=== PATIENT | female | born 1995 | race Caucasian/White ===

== ENCOUNTER → 2022-06-14 | Outpatient (CLI) | payer MEDICARE ==
[2022-06-14 15:40] LABS: HEMATOCRIT 39.9 % (36.0-47.0); HEMOGLOBIN 13.5 g/dl (12.0-15.5); MEAN CORPUSCULAR HEMOGLOBIN 29.3 pg (27.0-33.0); MEAN CORPUSCULAR HGB CONC 33.8 g/dl (32.0-36.5); MEAN CORPUSCULAR VOLUME 86.6 fl (80.0-96.0); PLATELET COUNT, AUTOMATED 329 10^3/uL (150-450); RED BLOOD COUNT 4.61 10^6/uL (4.00-5.40); WHITE BLOOD COUNT 11.7 10^3/uL (4.0-10.0)
[2022-06-14 17:00] LABS: HEPATITIS C VIRUS ABY INDEX < 0.0 INDEX (<0.8); HIV 1&2 SCREEN CENTAUR NEGATIVE (NEGATIVE)
[2022-06-14 17:12] LABS: GC DNA AMPLIFICATION NEGATIVE (NEGATIVE)
== END ==
LOC: M PLALAB 12:26
PROVIDERS: ATTEND Obstetrics & Gynecology
DX: Z36.9 Encounter for antenatal screening, unspecified (principal)

== ENCOUNTER → 2022-07-19 | Outpatient (CLI) | payer MEDICARE | LOC: M WHC 16:14 | PROVIDERS: ATTEND Advanced Practice Midwife | DX: Z53.9 Procedure and treatment not carried out, unspecified reason (principal) ==

== ENCOUNTER → 2022-07-25 | Outpatient (CLI) | payer MEDICARE | LOC: M PLALAB 15:18 | PROVIDERS: ATTEND Advanced Practice Midwife | DX: Z34.82 Encounter for supervision of other normal pregnancy, second trimester (principal) ==

== ENCOUNTER → 2022-08-02 | Outpatient (CLI) | payer MEDICARE | LOC: M WHC 13:52 | PROVIDERS: ATTEND Advanced Practice Midwife | DX: Z34.82 Encounter for supervision of other normal pregnancy, second trimester (principal) ==

== ENCOUNTER → 2022-10-31 | Outpatient (CLI) | payer BC | LOC: M WHC 07:04 | PROVIDERS: ATTEND Advanced Practice Midwife | DX: Z34.82 Encounter for supervision of other normal pregnancy, second trimester (principal); Z3A.32 32 weeks gestation of pregnancy ==

== ENCOUNTER → 2022-11-20 | Outpatient (CLI) | payer BC ==
[2022-11-20 14:02] LABS: HEMATOCRIT 34.5 % (36.0-47.0); HEMOGLOBIN 11.3 g/dl (12.0-15.5); MEAN CORPUSCULAR HEMOGLOBIN 28.3 pg (27.0-33.0); MEAN CORPUSCULAR HGB CONC 32.8 g/dl (32.0-36.5); MEAN CORPUSCULAR VOLUME 86.3 fl (80.0-96.0); PLATELET COUNT, AUTOMATED 245 10^3/uL (150-450)
[2022-11-20 15:46] LABS: GC DNA AMPLIFICATION NEGATIVE (NEGATIVE)
== END ==
LOC: M PLALAB 09:10
PROVIDERS: ATTEND Obstetrics & Gynecology
DX: Z34.82 Encounter for supervision of other normal pregnancy, second trimester (principal)

== ENCOUNTER → 2022-11-30 | Outpatient (REF) | payer BC | LOC: M SFHCWAGY 10:03 | PROVIDERS: ATTEND Advanced Practice Midwife | DX: Z34.83 Encounter for supervision of other normal pregnancy, third trimester (principal) ==

== ENCOUNTER 2022-12-21 10:10 | Outpatient (CLI) | payer BC ==
[~2022-12-21] VITALS: Ht 167.6 cm; Wt 105.3 kg
[2022-12-21 10:34] VITALS: BP 127/79
[2022-12-21 10:45] VITALS: BP 131/85
[2022-12-21 11:00] LABS: HEMATOCRIT 34.7 % (36.0-47.0); HEMOGLOBIN 11.4 g/dl (12.0-15.5); MEAN CORPUSCULAR HEMOGLOBIN 27.7 pg (27.0-33.0); MEAN CORPUSCULAR HGB CONC 32.9 g/dl (32.0-36.5); MEAN CORPUSCULAR VOLUME 84.4 fl (80.0-96.0); PLATELET COUNT, AUTOMATED 237 10^3/uL (150-450); RED BLOOD COUNT 4.11 10^6/uL (4.00-5.40); WHITE BLOOD COUNT 10.5 10^3/uL (4.0-10.0)
[2022-12-21] MEDS ORDERED: FAMO20TA PO (11:20)
[2022-12-21 11:22] LABS: URIC ACID 4.8 MG/DL (3.1-7.8)
[2022-12-21 11:24] LABS: LDH LACTATE DEHYDROGENASE 137 U/L (120-246)
[2022-12-21 11:25] LABS: ALT/SGPT 13 U/L (7.0-40); AST/SGOT 10 U/L (<34); BILIRUBIN,TOTAL 0.2 MG/DL (0.3-1.2); CREATININE FOR GFR 0.54 MG/DL (0.55-1.30); GLOMERULAR FILTRATION RATE > 60.0 (>60)
[2022-12-21 11:48] VITALS: BP 133/77
== END 2022-12-21 11:45 | disposition home or self-care (01) ==
LOC: M LDO 10:10
PROVIDERS: ATTEND Obstetrics & Gynecology
DX: O13.3 Gestational [pregnancy-induced] hypertension without significant proteinuria, third trimester (principal); Z3A.39 39 weeks gestation of pregnancy
CPT/HCPCS: 36415; 59025; 82247; 82565; 82570; 83615; 84156; 84450; 84460; 84550; 85027; G0463

== ENCOUNTER 2022-12-24 19:21 | Inpatient (IN) | payer BC ==
[~2022-12-24] VITALS: Ht 167.6 cm; Wt 105.2 kg
[~2022-12-24 19:21] MED LIST: FAMO20TA PO
[2022-12-24 19:54] VITALS: BP 131/78
[2022-12-24 20:08] VITALS: BP 131/77
[2022-12-24 20:32] LABS: HEMATOCRIT 35.3 % (36.0-47.0); HEMOGLOBIN 11.7 g/dl (12.0-15.5); MEAN CORPUSCULAR HEMOGLOBIN 27.8 pg (27.0-33.0); MEAN CORPUSCULAR HGB CONC 33.1 g/dl (32.0-36.5); MEAN CORPUSCULAR VOLUME 83.8 fl (80.0-96.0); PLATELET COUNT, AUTOMATED 276 10^3/uL (150-450); RED BLOOD COUNT 4.21 10^6/uL (4.00-5.40)
[2022-12-24] MEDS ORDERED: CARBOPROST TROMETHAMINE 250 MCG/ML AMP IM PRN (20:50)
[2022-12-24] MEDS ORDERED: TRANEXAMIC ACID INJection 1,000 MG in NS 100 ML IV PRN (20:50)
[2022-12-24] MEDS ORDERED: METHYLERGONOVINE MALEATE 0.2MG/ML 1ML VIAL IM PRN (20:50)
[2022-12-24] MEDS ORDERED: LACTATED RINGER'S 1000 ML IV STA (20:50)
[2022-12-24] MEDS ORDERED: LIDOCAINE 1% MDV 20ML VIAL INFIL PRN (20:50)
[2022-12-24] MEDS ORDERED: miSOPROStol 50MCG 1/2 TABLET SL SCH (21:00)
[2022-12-24] MEDS: LR 1,000 ML IV SCH (21:11)
[2022-12-25] VITALS (49 sets, daily range): BP systolic 99–174; BP diastolic 55–96
[2022-12-25] MEDS ORDERED: PROMETHAZINE 25MG/ML 1ML VIAL IV ONE (01:45)
[2022-12-25] MEDS ORDERED: CALCIUM CARBONATE 500 MG CHEW U/D PO PRN (01:45)
[2022-12-25] MEDS ORDERED: MORPHINE 10 MG/ML 1ML VIAL IV ONE (01:45)
[2022-12-25] MEDS ORDERED: LR 500 ML IV PRN (05:35)
[2022-12-25] MEDS ORDERED: EPIDURAL/PCA KEYS XX PRN (05:35)
[2022-12-25] MEDS ORDERED: diphenhydrAMINE 50MG/ML VIAL IV PRN (05:35)
[2022-12-25] MEDS ORDERED: NALOXONE INJ 0.4MG/1ML VIAL IV PRN (05:35)
[2022-12-25] MEDS ORDERED: FENTANYL/ROPIVACAINE/NACL BAG 100 ML EPIDURAL SCH (05:35)
[2022-12-25] MEDS: ONDANSETRON 4MG 2ML VIAL IV PRN ×2 (07:15→14:47)
[2022-12-25] MEDS: ePHEDrine SULFATE 25 MG/5 ML(5MG/ML) SYRINGE IVP PRN ×3 (07:39→07:47)
[2022-12-25] MEDS: LR 1,000 ML IV SCH (07:45)
[2022-12-25] MEDS ORDERED: OXYTOCIN DRIP 30 UNITS in IV 1 EA IV SCH (08:10)
[2022-12-25] MEDS ORDERED: PRENTAB9 PO (08:48)
[2022-12-25] MEDS ORDERED: TUMS500C PO (08:48)
[2022-12-25] MEDS ORDERED: HOME MED LIST COMPLETE! XX SCH (08:50)
[2022-12-25 13:18] LABS: CORD GAS ABE V -10.1; CORD GAS HCO3 V 18.9 MEQ/L; CORD GAS O2 SAT V 29.5 %; CORD GAS PCO2 V 53.2 mmHg; CORD GAS PH V 7.169 UNITS; CORD GAS PO2 V 18.5 mmHg; CORD GAS SBC V 15.1 MEQ/L; CORD GAS TCO2 V 20.6 MEQ/L
[2022-12-25 13:21] LABS: CORD GAS ABE A -14.1; CORD GAS O2 SAT A 22.9 %; CORD GAS PCO2 A 69.6 mmHg; CORD GAS PH A 7.031 UNITS; CORD GAS PO2 A 18.2 mmHg; CORD GAS SBC A 12.5 MEQ/L; CORD GAS TCO2 A 20.2 MEQ/L
[2022-12-25] MEDS ORDERED: DOCUSATE SODIUM 100MG CAPSULE PO PRN (13:45)
[2022-12-25] MEDS ORDERED: ANUSOL HC CREAM 30GM TOP PRN (13:45)
[2022-12-25] MEDS ORDERED: METHYLERGONOVINE MALEATE 0.2 MG TAB PO PRN (13:45)
[2022-12-25] MEDS ORDERED: RHOGAM 300MCG (1500IU) INJ IM SCH (13:45)
[2022-12-25] MEDS ORDERED: DIBUCAINE 1% OINTMENT 30GM TOP PRN (13:45)
[2022-12-25] MEDS ORDERED: ACETAMINOPHEN 500 MG TAB PO PRN (13:45)
[2022-12-25] MEDS ORDERED: ACETAMINOPHEN TAB 650MG DOSE (2X325MG) PO PRN (13:45)
[2022-12-25] MEDS ORDERED: MOM 30ML SUSPENSION UDC PO PRN (13:45)
[2022-12-25] MEDS ORDERED: IBUPROFEN 600MG TAB PO PRN (13:45)
[2022-12-25] MEDS ORDERED: LABETALOL 100MG/20ML VIAL IV STA ×2 (15:55→16:19)
[2022-12-25] MEDS: IBUPROFEN 800 MG TAB PO PRN (16:06)
[2022-12-25 17:16] LABS: HEMATOCRIT 37.3 % (36.0-47.0); HEMOGLOBIN 12.4 g/dl (12.0-15.5); MEAN CORPUSCULAR HEMOGLOBIN 27.7 pg (27.0-33.0); MEAN CORPUSCULAR HGB CONC 33.2 g/dl (32.0-36.5); MEAN CORPUSCULAR VOLUME 83.4 fl (80.0-96.0); PLATELET COUNT, AUTOMATED 252 10^3/uL (150-450); RED BLOOD COUNT 4.47 10^6/uL (4.00-5.40); WHITE BLOOD COUNT 19.8 10^3/uL (4.0-10.0)
[2022-12-25] MEDS: LABETALOL 200 MG TAB PO SCH (17:24)
[2022-12-25 17:47] LABS: ALT/SGPT 19 U/L (7.0-40); AST/SGOT 27 U/L (<34); BILIRUBIN,TOTAL 0.4 MG/DL (0.3-1.2); CREATININE FOR GFR 0.66 MG/DL (0.55-1.30); GLOMERULAR FILTRATION RATE > 60.0 (>60); LDH LACTATE DEHYDROGENASE 207 U/L (120-246)
[2022-12-25] MEDS ORDERED: LABETALOL 200 MG TAB PO SCH (21:00)
[2022-12-26] MEDS: IBUPROFEN 800 MG TAB PO PRN ×2 (04:17→16:53)
[2022-12-26 05:26] VITALS: BP 111/58
[2022-12-26] MEDS: PRENATAL VITAMINS CHEWABLE TABLET PO SCH (08:36)
[2022-12-26] MEDS: LABETALOL 200 MG TAB PO SCH ×2 (08:45→21:18)
[2022-12-26 10:00] VITALS: BP 118/82
[2022-12-26 14:15] VITALS: BP 122/60
[2022-12-26 18:00] VITALS: BP 130/81
[2022-12-26 22:30] VITALS: BP 121/63
[2022-12-27 02:00] VITALS: BP 121/62
[2022-12-27 06:00] VITALS: BP 123/58
[2022-12-27] MEDS: PRENATAL VITAMINS CHEWABLE TABLET PO SCH (08:11)
[2022-12-27 08:12] VITALS: BP 125/74
[2022-12-27] MEDS: LABETALOL 200 MG TAB PO SCH (08:12)
[2022-12-27] MEDS ORDERED: MEASLES,MUMPS,RUBELLA VACCINE INJ (MMR-II) SC.IMMUN ONE (09:00)
[2022-12-27 10:00] VITALS: BP 131/63
[2022-12-27] MEDS ORDERED: LABE20TAB PO (12:48)
== END 2022-12-27 13:50 | disposition home or self-care (01) | DRG 560 ==
LOC: M LDI 19:21 → M OBS 12-25 18:56
PROVIDERS: ADMIT Obstetrics & Gynecology; ATTEND Advanced Practice Midwife
PROC: 3E0P7GC Introduction of Other Therapeutic Substance into Female Reproductive, Via Natural or Artificial Opening (ICD-10-PCS; 2022-12-24)
PROC: 10E0XZZ Delivery of Products of Conception, External Approach (ICD-10-PCS; principal; 2022-12-25)
PROC: 0HQ9XZZ Repair Perineum Skin, External Approach (ICD-10-PCS; 2022-12-25)
DX: O69.81X0 Labor and delivery complicated by cord around neck, without compression, not applicable or unspecified (principal); O77.0 Labor and delivery complicated by meconium in amniotic fluid; Z3A.40 40 weeks gestation of pregnancy; O70.0 First degree perineal laceration during delivery; Z37.0 Single live birth

== ENCOUNTER → 2023-05-01 | Outpatient (REF) ==
[~2023-05-01] MED LIST changes: +LABE20TAB PO; +PRENTAB9 PO; +TUMS500C PO
== END ==
LOC: M EMP 15:22
PROVIDERS: ATTEND Family Medicine
DX: Z11.52 Encounter for screening for COVID-19 (principal)

== ENCOUNTER 2024-01-16 15:56 | Emergency (ER) | payer BC ==
[~2024-01-16] VITALS: Ht 167.6 cm; Wt 99.4 kg
[2024-01-16 16:24] LABS: BASO % 0.3 % (0.0-1.0); EOS # 0.2 10^3/uL (0.0-0.5); EOS % 1.7 % (0.0-3.0); HEMATOCRIT 32.2 % (36.0-47.0); LYMPH # 2.4 10^3/uL (1.5-5.0); LYMPH % 23.5 % (24.0-44.0); MEAN CORPUSCULAR HEMOGLOBIN 28.8 pg (27.0-33.0); MEAN CORPUSCULAR HGB CONC 34.2 g/dl (32.0-36.5); MEAN CORPUSCULAR VOLUME 84.3 fl (80.0-96.0); MONO # 0.7 10^3/uL (0.0-0.8); NEUTROPHILS # 6.8 10^3/uL (1.5-8.5); NEUTROPHILS % 67.2 % (36.0-66.0); PLATELET COUNT, AUTOMATED 286 10^3/uL (150-450); RED BLOOD COUNT 3.82 10^6/uL (4.00-5.40); WHITE BLOOD COUNT 10.1 10^3/uL (4.0-10.0)
[2024-01-16 16:50] LABS: BLOOD UREA NITROGEN 12 MG/DL (9-23); CALCIUM LEVEL 8.7 MG/DL (8.5-10.1); CARBON DIOXIDE LEVEL 26 MMOL/L (20-31); CHLORIDE LEVEL 106 MMOL/L (98-107); GLOMERULAR FILTRATION RATE > 60.0 (>60); GLUCOSE, FASTING 100 MG/DL (60-100); POTASSIUM SERUM 3.8 MMOL/L (3.5-5.1); SODIUM LEVEL 140 MMOL/L (136-145)
[2024-01-16 17:07] LABS: HCG, SERUM QUANTITATIVE 14619.6 MIU/ML (<4.2)
[2024-01-16 20:03] VITALS: BP 133/78; TEMP 97.4; O2SAT 98
== END 2024-01-16 20:53 | disposition home or self-care (01) ==
LOC: M ED 15:56
DX: O02.1 Missed abortion (principal); F17.290 Nicotine dependence, other tobacco product, uncomplicated; Z79.810 Long term (current) use of selective estrogen receptor modulators (SERMs)

== ENCOUNTER → 2024-05-12 | Outpatient (REF) | LOC: M EMP 08:01 | PROVIDERS: ATTEND Family Medicine | DX: Z11.52 Encounter for screening for COVID-19 (principal) ==

== ENCOUNTER 2024-08-04 13:49 | Emergency (ER) | payer BC ==
[~2024-08-04] VITALS: Ht 167.6 cm; Wt 99.5 kg
[2024-08-04] MEDS ORDERED: KETOROLAC 30 MG/ML 1ML VIAL IM ONE (17:05)
[2024-08-04] MEDS: ACETAMINOPHEN 500 MG TAB PO ONE (17:19)
[2024-08-04] MEDS: KETOROLAC 30 MG/ML 1ML VIAL IV ONE (17:19)
[2024-08-04 17:25] LABS: HEMOGLOBIN 12.4 g/dl (12.0-15.5); MEAN CORPUSCULAR HEMOGLOBIN 27.9 pg (27.0-33.0); MEAN CORPUSCULAR HGB CONC 33.5 g/dl (32.0-36.5); MEAN CORPUSCULAR VOLUME 83.3 fl (80.0-96.0); PLATELET COUNT, AUTOMATED 256 10^3/uL (150-450); RED BLOOD COUNT 4.44 10^6/uL (4.00-5.40); WHITE BLOOD COUNT 5.9 10^3/uL (4.0-10.0)
[2024-08-04 18:00] LABS: HCG, SERUM QUALITATIVE NEGATIVE (NEGATIVE)
[2024-08-04 18:01] LABS: BLOOD UREA NITROGEN 11 MG/DL (9-23); CALCIUM LEVEL 9.1 MG/DL (8.5-10.1); CARBON DIOXIDE LEVEL 25 MMOL/L (20-31); CHLORIDE LEVEL 107 MMOL/L (98-107); CREATININE FOR GFR 0.67 MG/DL (0.55-1.30); GLOMERULAR FILTRATION RATE > 60.0 (>60); GLUCOSE, FASTING 85 MG/DL (60-100); POTASSIUM SERUM 4.3 MMOL/L (3.5-5.1); SODIUM LEVEL 139 MMOL/L (136-145)
[2024-08-04 18:12] LABS: ERYTHROCYTE SEDIMENTATION RATE 31 mm/hr (0-20)
[2024-08-04 18:36] VITALS: BP 125/78; TEMP 97.7; O2SAT 100
== END 2024-08-04 18:37 | disposition home or self-care (01) ==
LOC: M ED 13:49
DX: G43.909 Migraine, unspecified, not intractable, without status migrainosus (principal); F17.290 Nicotine dependence, other tobacco product, uncomplicated
CPT/HCPCS: 80048; 84703; 85027; 85652; 96374; 99284; J1885

== ENCOUNTER → 2024-08-04 | Outpatient (REF) | LOC: M EMP 08:42 | PROVIDERS: ATTEND Family Medicine | DX: Z11.52 Encounter for screening for COVID-19 (principal) ==

== ENCOUNTER → 2025-01-07 | Outpatient (CLI) | payer BC ==
[~2025-01-07] MED LIST changes: +ONDA-282 PO
[2025-01-07 13:19] LABS: HEMOGLOBIN 12.1 g/dl (12.0-15.5); MEAN CORPUSCULAR HGB CONC 32.7 g/dl (32.0-36.5); MEAN CORPUSCULAR VOLUME 85.6 fl (80.0-96.0); PLATELET COUNT, AUTOMATED 303 10^3/uL (150-450); RED BLOOD COUNT 4.32 10^6/uL (4.00-5.40)
[2025-01-07 13:47] LABS: FREE T4 1.12 NG/DL (0.89-1.76)
[2025-01-07 13:48] LABS: THYROID STIMULATING HORMONE 1.384 uIU/ML (0.55-4.78)
[2025-01-07 14:44] LABS: HIV 1&2 SCREEN NEGATIVE (NEGATIVE)
[2025-01-07 14:53] LABS: HEPATITIS C VIRUS ABY INDEX 0.02 INDEX (<0.8)
== END ==
LOC: M PLALAB 11:34
PROVIDERS: ATTEND Nurse Practitioner Family
DX: N96 Recurrent pregnancy loss (principal)

== ENCOUNTER 2025-01-08 12:01 | Day surgery (SDC) | payer BC ==
[~2025-01-08] VITALS: Ht 167.6 cm; Wt 100.7 kg
[2025-01-08] MEDS ORDERED: KETOROLAC 30 MG/ML 1ML VIAL As Ordered ONE (13:00)
[2025-01-08] MEDS ORDERED: propofoL 200 MG/20 ML VIAL As Ordered ONE (13:00)
[2025-01-08] MEDS ORDERED: ONDANSETRON 4MG 2ML VIAL As Ordered ONE (13:00)
[2025-01-08] MEDS ORDERED: LIDOCAINE 2% 100MG/5ML SDV (FOR ANES.) As Ordered ONE (13:00)
[2025-01-08] MEDS ORDERED: ACETAMINOPHEN 1000MG/100ML IV BAG As Ordered ONE (13:00)
[2025-01-08] MEDS ORDERED: fentaNYL 100 MCG/2 ML INJECTION As Ordered ONE (13:01)
[2025-01-08] MEDS ORDERED: MIDAZOLAM INJ 2MG/2ML VIAL As Ordered ONE (13:01)
[2025-01-08] MEDS: DOXYCYCLINE HYCLATE 100MG TABLET PO ONE ×2 (13:30)
[2025-01-08] MEDS: SCOPOLAMINE 1MG TRANSDERMAL PATCH As Ordered ONE (13:30)
[2025-01-08] MEDS ORDERED: ePHEDrine SULFATE 25 MG/5 ML(5MG/ML) SYRINGE As Ordered ONE (13:48)
[2025-01-08] MEDS: SILVER NITRATE APPLICATOR (1 = QTY 10) As Ordered ONE (14:12)
[2025-01-08] MEDS: LIDOCAINE 1% MDV 20ML VIAL As Ordered ONE (14:20)
[2025-01-08] MEDS: SCOPOLAMINE 1MG TRANSDERMAL PATCH TOP ONE (14:33)
[2025-01-08] MEDS: METOCLOPRAMIDE INJ 10MG/2ML VIAL IV STA (14:39)
[2025-01-08] MEDS: RHOGAM 300MCG (1500IU) INJ IM SCH (16:25)
[2025-01-08 16:52] VITALS: BP 115/69; TEMP 97.6; O2SAT 99
== END 2025-01-08 16:58 | disposition home or self-care (01) ==
LOC: M SDC 12:01
PROVIDERS: ATTEND Obstetrics & Gynecology
DX: O02.1 Missed abortion (principal); Z86.19 Personal history of other infectious and parasitic diseases; Z87.891 Personal history of nicotine dependence
CPT/HCPCS: 59820; 86850; 86900; 86901; 88305; J0131; J1100; J1885; J2250; J2405; J2765; J2790; J3010

== ENCOUNTER → 2025-01-08 | Outpatient (CLI) | payer BC ==
[2025-01-08 15:32] LABS: FOLLICLE STIMULATING HORMONE < 0.3 mIU/ML; LUTEINIZING HORMONE < 0.1 mIU/ML
[2025-01-08 15:33] LABS: ESTRADIOL 560.7 PG/ML; PROLACTIN 9.62 NG/ML
[2025-01-09 10:53] LABS: DEHYDROEPIANDROSTERONE SULFATE 345 mcg/dL (14-349)
== END ==
LOC: M PLALAB 11:46
PROVIDERS: ATTEND Nurse Practitioner Family
DX: O02.1 Missed abortion (principal)

== ENCOUNTER → 2025-07-08 | Outpatient (REF) ==
[2025-07-08 10:04] LABS: SOFIA COVID ANTIGEN NEGATIVE (NEGATIVE)
== END ==
LOC: M EMP 09:44
PROVIDERS: ATTEND Family Medicine
DX: Z11.52 Encounter for screening for COVID-19 (principal)